=== PATIENT | female | born 1955 | race African-American/Black ===

== ENCOUNTER 2017-09-26 21:44 | Emergency (ER) | payer SELFPAY ==
[2017-09-26] MEDS ORDERED: CloNIDine HCL 0.1 MG TABLET PO ONE (23:02)
[2017-09-26 23:53] LABS: BASOPHILS % 0.2 (0.0-1.5); EOSINOPHILS % 0.7 % (0.0-6.8); MEAN CORPUSCULAR HEMOGLOBIN 28.9 pg (28.0-34.0); MONOCYTES % 4.3 % (0.0-11.0); NEUTROPHILS # 4.1 # k/uL (1.4-7.7)
[2017-09-27 00:06] LABS: eGFR (African) > 60; eGFR (Non-African) > 60
[2017-09-27 00:17] VITALS: BP 190/99
--- NOTE | 2017-09-27 00:31 | ED Physician Documentation ---
General Adult - HISTORIAN Historian: patient - HPI Stated Complaint: HTN Chief Complaint: General Adult Onset: hours Timing: worse Further Comments: yes (62 year old female patient presents with complaint of hypertension. States her BP was 200s/100s at home. States she does not take daily BP medications, has not seen PCP since 2007. Denies SOB or CP. C/O mild dizziness and mild headache.) - ROS CONST: no problems EYES/ENT: none CVS/RESP: none GI/: none MS/SKIN/LYMPH: none NEURO/PSYCH: headache, dizziness. denies: fainting, tingling, numbness, difficulty walking, difficulty with speech, anxiety, depression - PAST HX Past History: none Other History: none Surgeries/Procedures: Allergies/Adverse Reactions: Allergies Allergy/AdvReac Type Severity Reaction Status Date / Time No Known Allergies Allergy Unverified 09/26/17 23:50 Home Medications: Ambulatory Orders Medication Instructions Recorded Lisinopril [Zestril] 10 mg PO DAILY #30 tablet 09/27/17 - SOCIAL HX Smoking History: cigarettes - FAMILY HX Family History: No - VITAL SIGNS Vital Signs: Vital Signs Temp Pulse Resp BP Pulse Ox 67 16 190/99 99 09/27/17 00:15 09/27/17 00:15 09/27/17 00:15 09/27/17 00:15 - REVIEWED ASSESSMENTS Nursing Assessment Reviewed: Yes Vitals Reviewed: Yes Progress - Progress Progress: Medicated with clonidine .1 mg PO in the Er. ED Results Lab/Radiology - Lab Results Lab Results: Lab Results 09/26/17 09/26/17 23:35 23:35 WBC 5.90 K/ul K/ul (4.00-12.00) RBC 4.20 M/ul M/ul (3.90-5.20) Hgb 12.1 g/dL g/dL (12.0-16.0) Hct 39.1 % % (34.5-46.5) MCV 93.0 fl fl (80.0-100.0) MCH 28.9 pg pg (28.0-34.0) MCHC 31.1 g/dL g/dL (30.0-36.0) RDW 13.2 % % (11.3-14.3) Plt Count 227 K/mm3 K/mm3 (130-400) Neut % (Auto) 69.7 % % (39.0-79.0) Lymph % (Auto) 23.9 % % (16.0-50.0) [place] % (Auto) 4.3 % % (0.0-11.0) Eos % (Auto) 0.7 % % (0.0-6.8) Baso % (Auto) 0.2 (0.0-1.5) Neut # (Auto) 4.1 # k/uL # k/uL (1.4-7.7) Lymph # (Auto) 1.4 # k/uL # k/uL (0.6-4.0) Deuel # (Auto) 0.3 # k/uL # k/uL (0.0-0.9) Eos # (Auto) 0.0 # k/uL # k/uL (0.0-0.6) Baso # (Auto) 0.0 # k/uL # k/uL (0.0-0.5) Reactive Lymphs % 1.2 % % (0.0-5.0) Reactive Lymphs # 0.1 # k/uL # k/uL (0.0-0.8) Sodium 139 mmol/L mmol/L (136-145) Potassium 4.0 mmol/L mmol/L (3.5-5.1) Chloride 105 mmol/L mmol/L (98-107) Carbon Dioxide 27 mmol/L mmol/L (22-30) BUN 14 mg/dL mg/dL (7-17) Creatinine 0.90 mg/dL mg/dL (0.52-1.04) Estimated Creat Clear 67 Est GFR ( Amer) > 60 (60 - ) Est GFR (Non-Af Amer) > 60 (60 - ) Glucose 243 mg/dL H mg/dL (74-106) Calcium 9.5 mg/dL mg/dL (8.4-10.2) Total Bilirubin 0.6 mg/dL mg/dL (0.2-1.3) AST 16 U/L U/L (15-46) ALT 17 U/L U/L (13-69) Alkaline Phosphatase 94 U/L U/L (38-126) Total Protein 6.7 g/dL g/dL (6.3-8.2) Albumin 3.4 g/dL L g/dL (3.5-5.0) - Orders Orders: ED Orders Category Date Time Status CBC/PLATELET/DIFF Stat Lab 09/26/17 23:35 Completed CMP Stat Lab 09/26/17 23:35 Completed CloNIDine HCL [Catapress] Med 09/26/17 23:02 Discontinued 0.1 mg PO NOW ONE General Adult Physical Exam - PHYSICAL EXAM GENERAL APPEARANCE: [id number] N EENT: eye inspection normal, [place] RESPIRATORY: no resp distress, chest non-tender, breath sounds normal CVS: reg rate & rhythm, heart sounds normal, equal pulses, no murmur, no gallop , PMI nml, no JVD, no friction rub, 24 ABDOMEN: soft, no organomegaly, normal bowel sounds, no abdominal bruit, no distension SKIN: normal color, warm/dry, NR, INT, PAL, DR EXTREMITIES: non-tender, normal range of motion, no evidence of injury, no edema , J, [employer] NEURO: oriented X3, CN's nml as tested, motor nml, sensation nml, mood/affect nml Discharge Clincal Impression: Hypertension Qualifiers: Hypertension type: essential hypertension Qualified Code(s): I10 - Essential ( primary) hypertension Prescriptions: Lisinopril [Zestril] 10 mg PO DAILY #30 tablet Referrals: Primary Doctor,No [Primary Care Provider] - 2 Days Condition: Stable Disposition: 01 HOME, SELF-CARE Decision to Admit: NO Decision Time: 00:05
== END 2017-09-27 00:15 | disposition home or self-care (01) ==
LOC: ED 21:44
DX: I10 Essential (primary) hypertension (principal)
CPT/HCPCS: 80053; 85025; 99283

== ENCOUNTER 2018-01-02 14:35 | Emergency (ER) | payer SELFPAY ==
--- NOTE | 2018-01-02 15:05 | ED Physician Documentation ---
General Adult - HISTORIAN Historian: patient - HPI Stated Complaint: wasp sting to right upper arm Chief Complaint: Insect Bite Onset: hours (2) Timing: still present Severity: mild Further Comments: yes (She states around 1 pm she had a wasp sting her (she did see the wasp) she then took mud from the yard where the wasp was and applyed it to her arm with a bandage. She has hypertension. She has not been taking her medication. She has no chest pain. No other complaints. She did not take any OTC meds for her sting>) Last known Well Code/Unknown Code: Unknown - ROS CONST: no problems EYES/ENT: none CVS/RESP: none GI/: none MS/SKIN/LYMPH: none NEURO/PSYCH: denies: headache, fainting, dizziness - PAST HX Past History: hypertension Immunizations: UTD Allergies/Adverse Reactions: Allergies Allergy/AdvReac Type Severity Reaction Status Date / Time No Known Allergies Allergy Verified 01/02/18 15:29 Home Medications: Ambulatory Orders Medication Instructions Recorded Lisinopril [Zestril] 10 mg PO DAILY #30 tablet 09/27/17 - SOCIAL HX Smoking History: cigarettes Alcohol Use: none Drug Use: none - FAMILY HX Family History: No - VITAL SIGNS Vital Signs: Vital Signs Temp Pulse Resp BP Pulse Ox 190/99 09/27/17 00:15 - REVIEWED ASSESSMENTS Nursing Assessment Reviewed: Yes Vitals Reviewed: Yes Progress - Progress Progress: 1635: continue to monitor b/p. No pain complaints DG General Adult Physical Exam - PHYSICAL EXAM GENERAL APPEARANCE: no distress EENT: eye inspection normal, ENT inspection normal NECK: normal inspection RESPIRATORY: no resp distress, chest non-tender, breath sounds normal CVS: reg rate & rhythm, heart sounds normal, equal pulses, no murmur ABDOMEN: soft, normal bowel sounds BACK: normal inspection SKIN: warm/dry, normal color EXTREMITIES: non-tender, normal range of motion, no evidence of injury, no edema NEURO: oriented X3 Discharge Clincal Impression: Hypertension Qualifiers: Hypertension type: unspecified Qualified Code(s): I10 - Essential (primary) hypertension Insect sting Qualifiers: Encounter type: initial encounter Injury intent: accidental or unintentional Qualified Code(s): T63.481A - Toxic effect of venom of other arthropod, accident al (unintentional), initial encounter Referrals: Primary Doctor,No [Primary Care Provider] - 2 Days Comments: 1. Keep area clean and dry 2. Benadryl as needed for any skin or allergy concerns per directions on box 3. TAKE YOUR B/P MEDS 4. See PCP in 2-4 days 5. Return to ER for any concerns Condition: Stable Disposition: 01 HOME, SELF-CARE Decision to Admit: NO Date of Decison to Admit: 01/02/18 Decision Time: 16:55
[2018-01-02] MEDS ORDERED: CloNIDine HCL 0.1 MG TABLET PO ONE ×2 (15:23→16:21)
[2018-01-02 16:13] LABS: BASOPHILS % 0.4 (0.0-1.5); EOSINOPHILS % 0.7 % (0.0-6.8); MEAN CORPUSCULAR HEMOGLOBIN 29.6 pg (28.0-34.0); MEAN CORPUSCULAR VOLUME 93.4 fl (80.0-100.0); NEUTROPHILS # 3.2 # k/uL (1.4-7.7)
[2018-01-02 16:37] LABS: eGFR (African) > 60; eGFR (Non-African) > 60
[2018-01-02 19:33] VITALS: BP 166/108
== END 2018-01-02 17:00 | disposition home or self-care (01) ==
LOC: ED 14:35
DX: S40.861A Insect bite (nonvenomous) of right upper arm, initial encounter (principal); T63.481A Toxic effect of venom of other arthropod, accidental (unintentional), initial encounter; Y92.9 Unspecified place or not applicable; Y93.9 Activity, unspecified; Y99.9 Unspecified external cause status; I10 Essential (primary) hypertension
CPT/HCPCS: 80053; 84484; 85025; 99283